=== PATIENT | female | born 1935 | race African-American/Black ===

== ENCOUNTER 2021-10-14 19:57 | Inpatient (IN) ==
[2021-10-14] MEDS ORDERED: hydrALAZINE 20 MG/1 ML VIAL IV ONE (23:05)
[2021-10-14] MEDS ORDERED: GLUCAGON 1 MG VIAL IM PRN (23:41)
[2021-10-14] MEDS ORDERED: hydrALAZINE 20 MG/1 ML VIAL IV PRN (23:43)
[2021-10-14] MEDS ORDERED: ACETAMINOPHEN 325 MG TABLET PO PRN (23:43)
[2021-10-14] MEDS ORDERED: ONDANSETRON 4 MG/2 ML VIAL IV PRN (23:43)
[2021-10-14] MEDS ORDERED: BISACODYL 5 MG TABLET PO ONE (23:44)
[2021-10-14] MEDS ORDERED: ENOXAPARIN 40 MG/0.4 ML SYRINGE SUBCUT SCH (23:45)
[2021-10-14] MEDS ORDERED: DEXTROSE 50% 25 GM/50 ML SYRINGE IV PRN (23:56)
[2021-10-15] MEDS ORDERED: LABETALOL 20 MG/4 ML SYRINGE IV PRN (00:36)
[2021-10-15] MEDS ORDERED: ASPIRIN EC 325 MG TABLET PO ONE (00:40)
[2021-10-15 02:58] LABS: Basophils % 0.3 % (0.0-0.8); Eosinophils # 0.6 10*3/uL (0.0-0.87); Eosinophils % 8.8 % (0.00-10.9); Hematocrit 40.1 VOL% (35.7-47.0); Hemoglobin 13.9 GM/DL (12.0-16.0); Immature Granulocytes % 0.2 %; Immature Granulocytes Absolute 0.01 #; Lymphocytes # 2.1 10*3/uL (1.4-4.0); Lymphocytes % 31.8 % (21.3-54.2); Mean Corpuscular HGB Conc 34.7 GM/DL (32-36); Mean Corpuscular Volume 76.1 FL (87-102); Monocytes % 7.1 % (1.7-12.7); Neutrophils % 51.8 % (38.7-73.9); Platelet Count 137 T/CUMM (130-400); Red Blood Count 5.27 MC/CUMM (3.8-5.5); White Blood Count 6.5 T/CUMM (4-12)
[2021-10-15 03:26] LABS: Albumin 3.4 G/DL (3.4-5.0); Bilirubin,Total 0.9 MG/DL (0.20-1.00); Calcium 9.2 MG/DL (8.5-10.1); Potassium 3.5 MMOL/L (3.5-5.1); Risk Ratio 4.5; Thyroid Stimulating Hormone 1.79 uIU/ml (0.358-3.74); Total Protein 7.4 G/DL (6.4-8.2); VLDL Cholesterol 14.8 MG/DL
[2021-10-15 05:52] LABS: PT Patient Result 11.6 SECS (10.5-12.0)
[2021-10-15] MEDS ORDERED: ASPIRIN EC 81 MG TABLET PO SCH (09:00)
[2021-10-15] MEDS ORDERED: ATORVASTATIN 40 MG TABLET PO SCH (12:00)
[2021-10-15] MEDS ORDERED: hydroCHLOROthiazide 25 MG TABLET PO SCH (12:00)
[2021-10-15] MEDS ORDERED: amLODIPine 10 MG TABLET PO SCH (12:00)
[2021-10-15] MEDS: ASPIRIN EC 81 MG TABLET PO SCH (15:03)
[2021-10-15] MEDS: ATORVASTATIN 40 MG TABLET PO SCH (15:04)
[2021-10-15] MEDS: LORATADINE 10 MG TABLET PO SCH (15:04)
[2021-10-15] MEDS: ALUMINUM/MAGNES/SIMETH MAX STR 30 ML UDCUP PO PRN (19:00)
[2021-10-15] MEDS: LATANOPROST 0.005% OPH SOLN 2.5 ML BOTTLE BOTH EYES SCH (20:43)
[2021-10-15] MEDS ORDERED: PRAVASTATIN 10 MG PO SCH (21:00)
[2021-10-16] MEDS: ENOXAPARIN 40 MG/0.4 ML SYRINGE SUBCUT SCH ×2 (00:05→23:19)
[2021-10-16 06:07] LABS: Basophils % 0.2 % (0.0-0.8); Eosinophils # 0.4 10*3/uL (0.0-0.87); Eosinophils % 5.8 % (0.00-10.9); Hematocrit 40.8 VOL% (35.7-47.0); Hemoglobin 14.1 GM/DL (12.0-16.0); Immature Granulocytes % 0.3 %; Immature Granulocytes Absolute 0.02 #; Lymphocytes # 1.7 10*3/uL (1.4-4.0); Lymphocytes % 25.7 % (21.3-54.2); Mean Corpuscular HGB Conc 34.6 GM/DL (32-36); Mean Corpuscular Volume 76.7 FL (87-102); Mean Platelet Volume 13.1 FL (9.6-12.0); Monocytes % 6.9 % (1.7-12.7); Neutrophils % 61.1 % (38.7-73.9); Platelet Count 141 T/CUMM (130-400); Red Blood Count 5.32 MC/CUMM (3.8-5.5); Red Cell Distribution Width 14.3 % (9.3-17.3); White Blood Count 6.5 T/CUMM (4-12)
[2021-10-16 06:30] LABS: Calcium 9.7 MG/DL (8.5-10.1); Osmolality,Calculated 282.1 MOS/KG (273-304); Potassium 3.9 MMOL/L (3.5-5.1)
[2021-10-16] MEDS: CYANOCOBALAMIN 500 MCG TABLET PO SCH (08:53)
[2021-10-16] MEDS: ALUMINUM/MAGNES/SIMETH MAX STR 30 ML UDCUP PO PRN (08:53)
[2021-10-16] MEDS: LORATADINE 10 MG TABLET PO SCH (08:53)
[2021-10-16] MEDS: PANTOPRAZOLE 40 MG TABLET PO SCH (08:53)
[2021-10-16] MEDS: ATORVASTATIN 40 MG TABLET PO SCH (08:53)
[2021-10-16] MEDS: ASPIRIN EC 81 MG TABLET PO SCH (08:53)
[2021-10-16] MEDS: LOSARTAN 25 MG TABLET PO SCH (14:36)
[2021-10-16] MEDS: amLODIPine 10 MG TABLET PO SCH (14:36)
[2021-10-16] MEDS: LATANOPROST 0.005% OPH SOLN 2.5 ML BOTTLE BOTH EYES SCH (21:17)
[2021-10-16] MEDS: ZALEPLON 5 MG CAPSULE PO PRN (23:12)
[2021-10-17] MEDS: PANTOPRAZOLE 40 MG TABLET PO SCH (09:58)
[2021-10-17] MEDS: amLODIPine 10 MG TABLET PO SCH (09:58)
[2021-10-17] MEDS: ASPIRIN EC 81 MG TABLET PO SCH (09:58)
[2021-10-17] MEDS: LOSARTAN 25 MG TABLET PO SCH (09:59)
[2021-10-17] MEDS: LORATADINE 10 MG TABLET PO SCH (10:00)
[2021-10-17] MEDS: CYANOCOBALAMIN 500 MCG TABLET PO SCH (10:00)
[2021-10-17] MEDS: ATORVASTATIN 40 MG TABLET PO SCH (10:00)
[2021-10-17] MEDS: LATANOPROST 0.005% OPH SOLN 2.5 ML BOTTLE BOTH EYES SCH (20:42)
[2021-10-17] MEDS: ZALEPLON 5 MG CAPSULE PO PRN (22:33)
[2021-10-17] MEDS: ENOXAPARIN 40 MG/0.4 ML SYRINGE SUBCUT SCH (23:57)
[2021-10-18 05:59] LABS: Basophils % 0.2 % (0.0-0.8); Eosinophils # 0.5 10*3/uL (0.0-0.87); Eosinophils % 9.1 % (0.00-10.9); Hematocrit 38.5 VOL% (35.7-47.0); Hemoglobin 13.6 GM/DL (12.0-16.0); Immature Granulocytes % 0.4 %; Immature Granulocytes Absolute 0.02 #; Lymphocytes # 1.7 10*3/uL (1.4-4.0); Lymphocytes % 29.6 % (21.3-54.2); Mean Corpuscular HGB Conc 35.3 GM/DL (32-36); Mean Corpuscular Volume 76.1 FL (87-102); Monocytes % 8.2 % (1.7-12.7); Neutrophils % 52.5 % (38.7-73.9); Platelet Count 135 T/CUMM (130-400); Red Blood Count 5.06 MC/CUMM (3.8-5.5); Red Cell Distribution Width 14.3 % (9.3-17.3); White Blood Count 5.6 T/CUMM (4-12)
[2021-10-18 06:24] LABS: Calcium 9.4 MG/DL (8.5-10.1); Osmolality,Calculated 278.3 MOS/KG (273-304); Potassium 3.9 MMOL/L (3.5-5.1)
[2021-10-18 06:27] LABS: Anisocytosis 1+; Platelet Estimate Adequate; Target Cells Few
[2021-10-18] MEDS: LORATADINE 10 MG TABLET PO SCH (09:34)
[2021-10-18] MEDS: CYANOCOBALAMIN 500 MCG TABLET PO SCH (09:34)
[2021-10-18] MEDS: LOSARTAN 25 MG TABLET PO SCH (09:35)
[2021-10-18] MEDS: ASPIRIN EC 81 MG TABLET PO SCH (09:35)
[2021-10-18] MEDS: amLODIPine 10 MG TABLET PO SCH (09:35)
[2021-10-18] MEDS: ATORVASTATIN 40 MG TABLET PO SCH (09:35)
[2021-10-18] MEDS: PANTOPRAZOLE 40 MG TABLET PO SCH (09:35)
[2021-10-18] MEDS: LATANOPROST 0.005% OPH SOLN 2.5 ML BOTTLE BOTH EYES SCH (22:16)
[2021-10-18] MEDS: ZALEPLON 5 MG CAPSULE PO PRN (22:16)
[2021-10-19] MEDS: ENOXAPARIN 40 MG/0.4 ML SYRINGE SUBCUT SCH (00:39)
[2021-10-19 05:42] LABS: Basophils % 0.2 % (0.0-0.8); Eosinophils # 0.6 10*3/uL (0.0-0.87); Eosinophils % 8.8 % (0.00-10.9); Hematocrit 42.6 VOL% (35.7-47.0); Hemoglobin 14.7 GM/DL (12.0-16.0); Immature Granulocytes % 0.3 %; Immature Granulocytes Absolute 0.02 #; Lymphocytes # 1.9 10*3/uL (1.4-4.0); Lymphocytes % 29.9 % (21.3-54.2); Mean Corpuscular HGB Conc 34.5 GM/DL (32-36); Mean Corpuscular Volume 76.6 FL (87-102); Neutrophils % 52.8 % (38.7-73.9); Platelet Count 148 T/CUMM (130-400); Red Blood Count 5.56 MC/CUMM (3.8-5.5); Red Cell Distribution Width 14.2 % (9.3-17.3); White Blood Count 6.2 T/CUMM (4-12)
[2021-10-19 06:00] LABS: Calcium 9.4 MG/DL (8.5-10.1); Osmolality,Calculated 280.3 MOS/KG (273-304); Potassium 3.5 MMOL/L (3.5-5.1)
[2021-10-19 06:28] LABS: Platelet Estimate Adequate
[2021-10-19 06:29] LABS: Anisocytosis Slight; Target Cells Few
[2021-10-19] MEDS: ATORVASTATIN 40 MG TABLET PO SCH (09:12)
[2021-10-19] MEDS: CYANOCOBALAMIN 500 MCG TABLET PO SCH (09:13)
[2021-10-19] MEDS: PANTOPRAZOLE 40 MG TABLET PO SCH (09:13)
[2021-10-19] MEDS: amLODIPine 10 MG TABLET PO SCH (09:13)
[2021-10-19] MEDS: ASPIRIN EC 81 MG TABLET PO SCH (09:13)
[2021-10-19] MEDS: LOSARTAN 25 MG TABLET PO SCH (09:14)
[2021-10-19] MEDS: LORATADINE 10 MG TABLET PO SCH (09:14)
[2021-10-19] MEDS ORDERED: ZALEPLON 5 MG CAPSULE PO SCH (21:00)
[2021-10-19] MEDS: LATANOPROST 0.005% OPH SOLN 2.5 ML BOTTLE BOTH EYES SCH (21:02)
[2021-10-20] MEDS: ENOXAPARIN 40 MG/0.4 ML SYRINGE SUBCUT SCH (01:19)
[2021-10-20] MEDS: amLODIPine 10 MG TABLET PO SCH (10:20)
[2021-10-20] MEDS: LOSARTAN 25 MG TABLET PO SCH (10:20)
[2021-10-20] MEDS: ASPIRIN EC 81 MG TABLET PO SCH (10:20)
[2021-10-20] MEDS: LORATADINE 10 MG TABLET PO SCH (10:20)
[2021-10-20] MEDS: CYANOCOBALAMIN 500 MCG TABLET PO SCH (10:20)
[2021-10-20] MEDS: ATORVASTATIN 40 MG TABLET PO SCH (10:20)
[2021-10-20] MEDS: PANTOPRAZOLE 40 MG TABLET PO SCH (10:20)
[2021-10-20] MEDS ORDERED: METOPROLOL TARTRATE 25 MG TABLET PO SCH (14:30)
[2021-10-20 17:05] VITALS: BP 147/79
== END 2021-10-20 17:00 | DRG 66 ==
LOC: N.TELES → SUATTDRO 21:43
PROVIDERS: ADMIT Internal Medicine; ATTEND Internal Medicine